=== PATIENT | male | born 2000 | race Caucasian/White ===

== ENCOUNTER → 2024-03-21 11:00 | Outpatient (BNVA) | payer SELFPAY | PROVIDERS: Visit Provider Physician Assistant Medical | DX: T15.81XA Foreign body in other and multiple parts of external eye, right eye, initial encounter (principal); W44.E0XA Non-magnetic metal object unspecified, entering into or through a natural orifice, initial encounter; H44.791 Retained (old) intraocular foreign body, nonmagnetic, in other or multiple sites, right eye | CPT/HCPCS: 92002; 99203 ==